=== PATIENT | female | born 1940 | race Caucasian/White ===

== ENCOUNTER 2018-10-12 10:01 | Outpatient (CLI) | payer MEDICARE, OTHER ==
--- NOTE | 2018-10-12 13:07 | RAD ---
LUMBAR SPINE FOUR VIEWS: 10/12/18 INDICATION: Low back pain. COMPARISON: None. FINDINGS: There is levoscoliosis of the lumbar spine centered at L2-3. There are laminectomy changes at L3-4. T here is retrolisthesis of L3 and L4. There is advanced disc degenerative disease at L1-2 with mild wedging of L1. This is stable since an MR examination dated 03/31/10 from [facility]. IMPRESSION: 1. Severe multilevel spondylosis of the lumbar spine affecting all lumbar intervertebral levels. Multilevel facet arthrosis. 2. Stable mild compression fracture of L1. 3. Prominent levoscoliosis of the lumbar spine. POS: [facility]
== END 2018-10-12 10:02 | disposition home or self-care (01) ==
LOC: TBSIIMAG 10:01
PROVIDERS: ATTEND Neurological Surgery
DX: M54.5 Low back pain (principal); M47.816 Spondylosis without myelopathy or radiculopathy, lumbar region; S32.019A Unspecified fracture of first lumbar vertebra, initial encounter for closed fracture; M41.9 Scoliosis, unspecified
CPT/HCPCS: 72110

== ENCOUNTER 2019-04-09 10:27 | Emergency (ER) | payer MEDICARE, OTHER ==
--- NOTE | 2019-04-09 11:03 | RAD ---
EXAM: Chest PA and lateral: HISTORY: Cough COMPARISON: 11/17/2017 FINDINGS: Lung acevedo are clear. Vascular markings are normal. Heart and mediastinum appear unremarkable. Degenerative spine change with anterior wedging of L1. IMPRESSION: No acute lung process
== END 2019-04-09 11:24 | disposition home or self-care (01) ==
LOC: ERS 10:27
DX: J30.2 Other seasonal allergic rhinitis (principal); Z87.891 Personal history of nicotine dependence; Z86.73 Personal history of transient ischemic attack (TIA), and cerebral infarction without residual deficits; Z79.899 Other long term (current) drug therapy
CPT/HCPCS: 71046

== ENCOUNTER 2020-02-06 16:49 | Emergency (ER) | payer MEDICARE, OTHER ==
--- NOTE | 2020-02-06 17:19 | RAD ---
RADIOGRAPH CHEST 2 VIEWS: DATE: 02/06/2020 HISTORY: 79-year-old female with nonproductive cough and chest pain FINDINGS: There is no airspace density, pulmonary edema, pleural effusion, pneumothorax, or cardiomegaly. IMPRESSION: No acute cardiopulmonary findings.
== END 2020-02-06 18:35 | disposition left against medical advice (07) ==
LOC: ERS 16:49
DX: Z53.21 Procedure and treatment not carried out due to patient leaving prior to being seen by health care provider (principal)
CPT/HCPCS: 71046; 93005